=== PATIENT | male | born 1955 | race Two or more races ===

== ENCOUNTER 2022-09-19 15:17 | Emergency (ER) | payer OTHER ==
[~2022-09-19] VITALS: Ht 167.6 cm; Wt 81.8 kg
[2022-09-19 15:17] VITALS: PULSE 0; RESP 0; O2SAT 0
[2022-09-19 15:28] VITALS: BP 0/0; PULSE 0; RESP 0; O2SAT 0
== END 2022-09-19 16:01 ==
LOC: ER 15:17 → EDBD 15:17 → ER 16:01
DX: I46.9 Cardiac arrest, cause unspecified (principal)
CPT/HCPCS: 31500; 92950